=== PATIENT | male | born 1955 | race Caucasian/White ===

== ENCOUNTER 2017-11-18 19:35 | Emergency (ER) | payer OTHER ==
[~2017-11-18] VITALS: Ht 177.8 cm; Wt 94.1 kg
[~2017-11-18 19:35] MED LIST: AMLO10TA2 PO; ASPCH81 PO; ASTN NAE; COEN50CA2 PO; CZR25 PO; HYDR25TA4 PO; LEVO-14 PO; LPT40 PO; MULT-618 PO; OMEG10007 PO; OMEP40CA36 PO; PLV75 PO; TERA1CAP63 PO; TPRSR25 PO
[2017-11-18 19:39] VITALS: TEMP 36.5; Ht 177.8 cm; Wt 94.1 kg
[2017-11-18] MEDS ORDERED: ASPIRIN 81 MG CHEW PO STA (19:53)
--- NOTE | 2017-11-18 20:09 | DIAGNOSTIC IMAGING REPORT ---
CHEST ONE VIEW PORTABLE CLINICAL HISTORY: 62 years-old Male presenting with CHEST PAIN. TECHNIQUE: Portable upright AP view of the chest was obtained. COMPARISON: 03/08/2016. FINDINGS: Cardiomediastinal silhouette normal. Lungs and pleural spaces clear. Advanced degenerative changes of the bilateral glenohumeral joints. Upper abdomen normal. IMPRESSION: 1. No acute cardiopulmonary disease. Electronically signed by: Kirby Barba M.D. 11/18/2017 8:07 PM Dictated Date/Time: 11/18/2017 8:07 PM
--- NOTE | 2017-11-18 20:13 | EMERGENCY ROOM VISIT NOTE ---
History Report prepared by Soraya: Tian Gold Under the Supervision of: Dr. Lester Rodriguez D.O. First contact with patient: 19:50 Chief Complaint: CHEST PAIN Stated Complaint: CHEST PAIN History of Present Illness The patient is a 62 year old male who presents to the Emergency Room with complaints of intermittent chest pain that began a week ago. He rates his discomfort as a 2/10 in severity. He reports that his pain is worsened with movement. The patient states that he developed sharp chest pain about a week ago. He states his pain has been accompanied by left arm tingling, shoulder pain , and left back pain. The patient reports that his back pain is resolved. The patient states that over the last week his pain turned into a "twitching" pain with a burning sensation. He states that he had similar symptoms in the past when he lifted something heavy. The patient notes that he did lift a heavy object recently and is unsure if this is what is causing his pain. The patient denies Nitroglycerin use, abdominal pain, and smoking. He reports that he has history of angioplasty three years ago and hypertension, which he sees a applied technologist for. The patient states that he takes Aspirin for his hypertension and states that he took his daily dose this morning. He also reports a history of ulnar nerve repositioning a year ago and occasional alcohol use. Source of History: patient Onset: a week ago Position: chest Symptom Intensity: 2/10 Quality: burning, sharp, other ("twitching") Timing: intermittent Modifying Factors (Worsening): movement Associated Symptoms: + back pain, No abdominal pain Note: Associated symptoms: shoulder pain, left arm tingling Review of Systems See HPI for pertinent positives & negatives. A total of 10 systems reviewed and were otherwise negative. Past Medical & Surgical Medical Problems: (1) CAD (coronary artery disease) (2) Chest pain (3) Dyslipidemia (4) GERD (gastroesophageal reflux disease) (5) HTN (hypertension) (6) Unstable angina Surgical Problems: (1) H/O arthroscopy of shoulder Family History Diabetes mellitus FH: heart disease FH: lung disease FHx: cancer FHx: gallbladder disease Hypertension Social History Smoking Status: Never Smoker Alcohol Use: occasionally Housing Status: lives with significant other Current/Historical Medications Scheduled Amlodipine Besylate (Norvasc), 10 MG PO DAILY Aspirin (Aspirin Adult Low Dose), 81 MG PO DAILY Atorvastatin (Lipitor), 40 MG PO DAILY Chlorhexidine Gluconate (Chlorhexidine Gluconate), 1 DOSE PO BID Clopidogrel (Plavix), 75 MG PO DAILY Coenzyme Q10 (Ubidecarenone) (Co Q-10), 100 MG PO DAILY Fish Oil ([place]ican[place]-3), 1 CAP PO BID Hydrochlorothiazide (Hydrochlorothiazide), 25 MG PO Q2D Losartan Potassium (Losartan Potassium), 50 MG PO DAILY Multiple Vitamins W/ Minerals (Centrum Silver Ultra Mens), 1 TAB PO DAILY Terazosin (Hytrin), 5 MG PO DAILY Scheduled PRN Omeprazole (Prilosec), 20 MG PO DAILY PRN for REFLUX Allergies Coded Allergies: DANIAL Inhibitors (Verified Allergy, Mild, UNK, 03/15/16) Simvastatin (Verified Allergy, Mild, UNK, 03/15/16) Physical Exam Vital Signs Date Time Temp Pulse Resp B/P (MAP) Pulse Ox O2 Delivery O2 Flow Rate FiO2 11/18/17 23:12 78 18 150/96 97 Room Air 11/18/17 22:29 76 18 148/96 96 Room Air 11/18/17 21:02 72 20 135/90 96 Room Air 11/18/17 20:25 Room Air 11/18/17 20:12 Room Air 11/18/17 20:12 Room Air 11/18/17 20:09 86 11/18/17 19:39 36.5 89 18 151/86 98 Room Air Physical Exam GENERAL: Patient is awake, alert, and in no acute distress. Patient is resting comfortably and showing no signs of anxiety EYES: The conjunctivae are clear. The pupils are round and reactive. EARS, NOSE, MOUTH AND THROAT: The nose is without any evidence of any deformity. Mucous membranes are moist tongue is midline NECK: The neck is nontender and supple. RESPIRATORY: Normal respiratory effort is noted there is no evidence of wheezing rhonchi or rales CARDIOVASCULAR: Regular rate and rhythm noted there no murmurs rubs or gallops normal S1 normal S2 GASTROINTESTINAL: The abdomen is soft. Bowel sounds are present in all quadrants. Abdomen is nontender MUSCULOSKELETAL/EXTREMITIES: There is no evidence of gross deformity full range of motion is noted in the hips and shoulders SKIN: There is no obvious evidence of any rash. There are no petechiae, pallor or cyanosis noted. NEUROLOGIC: Patient is awake alert and oriented x3. Medical Decision & Procedures ER Provider Diagnostic Interpretation: X-ray results as stated below per interpretation by me and the radiologist. CHEST ONE VIEW PORTABLE CLINICAL HISTORY: 62 years-old Male presenting with CHEST PAIN. TECHNIQUE: Portable upright AP view of the chest was obtained. COMPARISON: 03/08/2016. FINDINGS: Cardiomediastinal silhouette normal. Lungs and pleural spaces clear. Advanced degenerative changes of the bilateral glenohumeral joints. Upper abdomen normal. IMPRESSION: 1. No acute cardiopulmonary disease. Electronically signed by: Kirby Barba M.D. 11/18/2017 8:07 PM Dictated Date/Time: 11/18/2017 8:07 PM Laboratory Results 11/18/17 20:20 Red Blood Count 5.13, Mean Corpuscular Volume 84.2, Mean Corpuscular Hemoglobin 30.2, Mean Corpuscular Hemoglobin Concent 35.9, Mean Platelet Volume 10.0, Neutrophils (%) (Auto) 62.5, Lymphocytes (%) (Auto) 24.9, Monocytes (%) (Auto) 10.3, Eosinophils (%) (Auto) 1.9, Basophils (%) (Auto) 0.2, Neutrophils # (Auto ) 3.60, Lymphocytes # (Auto) 1.43, Monocytes # (Auto) 0.59, Eosinophils # (Auto ) 0.11, Basophils # (Auto) 0.01 11/18/17 20:20 Test 11/18/17 20:20 11/18/17 21:35 White Blood Count 5.75 K/uL (4.8-10.8) Red Blood Count 5.13 M/uL (4.7-6.1) Hemoglobin 15.5 g/dL (14.0-18.0) Hematocrit 43.2 % (42-52) Mean Corpuscular Volume 84.2 fL (80-100) Mean Corpuscular Hemoglobin 30.2 pg (25-34) Mean Corpuscular Hemoglobin Concent 35.9 g/dl (32-36) Platelet Count 176 K/uL (130-400) Mean Platelet Volume 10.0 fL (7.4-10.4) Neutrophils (%) (Auto) 62.5 % Lymphocytes (%) (Auto) 24.9 % Monocytes (%) (Auto) 10.3 % Eosinophils (%) (Auto) 1.9 % Basophils (%) (Auto) 0.2 % Neutrophils # (Auto) 3.60 K/uL (1.4-6.5) Lymphocytes # (Auto) 1.43 K/uL (1.2-3.4) Monocytes # (Auto) 0.59 K/uL (0.11-0.59) Eosinophils # (Auto) 0.11 K/uL (0-0.5) Basophils # (Auto) 0.01 K/uL (0-0.2) RDW Standard Deviation 38.8 fL (36.4-46.3) RDW Coefficient of Variation 12.8 % (11.5-14.5) Immature Granulocyte % (Auto) 0.2 % Immature Granulocyte # (Auto) 0.01 K/uL (0.00-0.02) Prothrombin Time 11.4 SECONDS (9.0-12.0) Prothromb Time International Ratio 1.1 (0.9-1.1) Activated Partial Thromboplast Time 28.5 SECONDS (21.0-31.0) Partial Thromboplastin Ratio 1.1 Anion Gap 8.0 mmol/L (3-11) Est Creatinine Clear Calc Drug Dose 99.3 ml/min Estimated GFR () 106.5 Estimated GFR (Non- 91.9 BUN/Creatinine Ratio 11.5 (10-20) Calcium Level 9.0 mg/dl (8.5-10.1) Total Bilirubin 1.0 mg/dl (0.2-1) Direct Bilirubin 0.2 mg/dl (0-0.2) Aspartate Amino Transf (AST/SGOT) 25 U/L (15-37) Alanine Aminotransferase (ALT/SGPT) 40 U/L (12-78) Alkaline Phosphatase 81 U/L (45-117) Total Creatine Kinase 163 U/L (39-308) Creatine Kinase MB 2.9 ng/ml (0.5-3.6) Creatine Kinase MB Ratio 1.8 (0-3.0) Total Protein 7.9 gm/dl (6.4-8.2) Albumin 4.5 gm/dl (3.4-5.0) Lipase 119 U/L (73-393) Troponin I < 0.015 ng/ml (0-0.045) Laboratory results per my review. Medications Administered Medications (Trade) Dose Ordered Sig/Christa Route Start Time Stop Time Status Last Admin Dose Admin Aspirin (Aspirin Chew) 324 mg NOW STAT PO 11/18/17 19:53 11/18/17 19:54 DC 11/18/17 19:58 324 MG ECG Per My Interpretation Indication: chest pain Rate (beats per minute): 90 Rhythm: normal sinus Findings: no ectopy, other (, No acute ST segment abnormalities.) Comparison ECG Date: 03/16/16 Change: no significant change Change: REPEAT EKG - 74 normal sinus, PVCs noted, No acute ST segment abnormalities. No change from earlier tracing. ED Course 1950: The patient was evaluated in room C03. A complete history and physical examination were performed. 1952: Ordered Aspirin 324 mg PO. 2300: Upon reevaluation, the patient is resting. I discussed the results and treatment plan with the patient. He verbalized agreement of the treatment plan. The patient was discharged home. Medical Decision Prior records/ancillary studies reviewed. Triage Nursing notes reviewed. The patient's history was concerning for chest pain. Differential diagnosis: Etiologies such as cardiac ischemia, aortic dissection, pulmonary embolism, pneumonia, pneumothorax, musculoskeletal, infections, pericarditis, myocarditis , esophageal rupture, gastrointestinal, as well as others were entertained. The patient is a 62-year-old male who presented to the emergency department for left-sided chest pain. The patient's pain is not reproducible but it was not associated with exertion. The patient states that he had similar episodes in the past associated with heavy lifting but he also has a cardiac history. The patient's laboratory and radiographic studies were discussed with him. I also discussed the limitations of the emergency department workup for chest pain with him. The patient had serial troponin as well as serial EKGs done in the emergency department. At this time I do not feel the patient's discomfort is secondary to a cardiac source although I discussed that this was still possible. Ultimately the patient decided to follow-up with his primary care physician as well as his primary applied technologist. I did offer to have the patient evaluated by the hospitalist for possible inpatient management but at this time I do feel that his workup puts him in a much lower risk category. He was encouraged to rest and avoid any strenuous activity. I also encouraged him to continue all medications as prescribed and follow-up with his primary care physician and his primary applied technologist as soon as possible for further testing. He is also encouraged to return the emergency department immediately if symptoms change worsen or the need arises. Medication Reconcilliation Current Medication List: was personally reviewed by me Blood Pressure Screening Patient's blood pressure: Elevated blood pressure Blood pressure disposition: Elevated BP felt to be situational Impression Primary Impression: Left sided chest pain Scribe Attestation The scribe's documentation has been prepared under my direction and personally reviewed by me in its entirety. I confirm that the note above accurately reflects all work, treatment, procedures, and medical decision making performed by me. Departure Information Dispostion Home / Self-Care Referrals Donte Harris M.D.([facility]) (PCP) Randy Pickard M.D. Forms Call Back Authorization, HOME CARE DOCUMENTATION FORM, IMPORTANT VISIT INFORMATION Patient Instructions ED Chest Pain Atypical Unkn Cause, My [facility] Additional Instructions Continue all medications as prescribed. Rest and avoid any strenuous activity. Call your primary applied technologist to schedule a follow-up appointment. Return to the emergency department immediately if symptoms change worsen or the need arises.
[2017-11-18 20:33] LABS: BASO % 0.2 %; BASO ABS # 0.01 K/uL (0-0.2); EOS % 1.9 %; EOS ABS # 0.11 K/uL (0-0.5); HEMATOCRIT 43.2 % (42-52); HEMOGLOBIN 15.5 g/dL (14.0-18.0); IG# 0.01 K/uL (0.00-0.02); LYMPH % 24.9 %; LYMPH ABS # 1.43 K/uL (1.2-3.4); MEAN CELL VOLUME 84.2 fL (80-100); MEAN CORPUSCULAR HEMOGLOBIN 30.2 pg (25-34); MEAN CORPUSCULAR HGB CONC 35.9 g/dl (32-36); MONO % 10.3 %; MONO ABS # 0.59 K/uL (0.11-0.59); NEUT % 62.5 %; PLATELET COUNT 176 K/uL (130-400); RED CELL DISTRIBUTION WIDTH CV 12.8 % (11.5-14.5); RED CELL DISTRIBUTION WIDTH SD 38.8 fL (36.4-46.3); WHITE BLOOD COUNT 5.75 K/uL (4.8-10.8)
[2017-11-18 20:41] LABS: INR 1.1 (0.9-1.1); PTT PATIENT 28.5 SECONDS (21.0-31.0)
[2017-11-18] MEDS ORDERED: ASPI-589 PO (20:42)
[2017-11-18] MEDS ORDERED: ATOR-24 PO (20:42)
[2017-11-18] MEDS ORDERED: OMEP20CA9 PO (20:42)
[2017-11-18] MEDS ORDERED: TERA5CAP PO (20:42)
[2017-11-18] MEDS ORDERED: PRDUDL5 PO (20:42)
[2017-11-18] MEDS ORDERED: CZR50 PO (20:42)
[2017-11-18] MEDS ORDERED: HYDR25TA5 PO (20:42)
[2017-11-18] MEDS ORDERED: CLOP1TAB15 PO (20:42)
[2017-11-18 20:54] LABS: ALBUMIN 4.5 gm/dl (3.4-5.0); ALT/SGPT 40 U/L (12-78); BLOOD UREA NITROGEN 10 mg/dl (7-18); CARBON DIOXIDE 25 mmol/L (21-32); GLUCOSE 112 mg/dl (70-99); LIPASE 119 U/L (73-393); POTASSIUM 3.5 mmol/L (3.5-5.1); SODIUM 137 mmol/L (136-145)
[2017-11-18 20:59] LABS: ALKALINE PHOSPHATASE 81 U/L (45-117); AST/SGOT 25 U/L (15-37); CKMB 2.9 ng/ml (0.5-3.6); TOTAL PROTEIN 7.9 gm/dl (6.4-8.2)
[2017-11-18 23:12] VITALS: BP 150/96; PULSE 78; O2SAT 97
== END 2017-11-18 23:17 | disposition home or self-care (01) ==
LOC: C.EDB 19:36 → C.EDC 23:17
DX: R07.9 Chest pain, unspecified (principal); I25.10 Atherosclerotic heart disease of native coronary artery without angina pectoris; I10 Essential (primary) hypertension; Z82.49 Family history of ischemic heart disease and other diseases of the circulatory system